=== PATIENT | male | born 1965 | race Caucasian/White ===

== ENCOUNTER 2016-03-07 11:13 | Emergency (ER) | payer OTHER ==
[~2016-03-07] VITALS: Ht 180.3 cm; Wt 95.3 kg
[~2016-03-07 11:13] MED LIST: AMOXICILLIN875 MG PO; MOTRIN800 MG PO; VICODIN5-300 PO
--- NOTE | 2016-03-07 12:02 | ED GENERAL ADULT ---
History of Present Illness General Chief Complaint: General Adult Stated Complaint: MULTIPLE COMPLAINTS Source: patient Exam Limitations: no limitations Vital Signs & Intake/Output Vital Signs & Intake/Output Vital Signs Date Time Temp Pulse Resp B/P Pulse O2 O2 Flow FiO2 Ox Delivery Rate 03/07 1419 97.8 88 22 140/84 96 Room Air 03/07 1128 98.3 95 20 136/92 97 Room Air Allergies Coded Allergies: No Known Allergies (05/06/15) Reconcile Medications Amoxicillin 875 MG TAB 1 TAB PO BID INFECTINO Gabapentin 300 MG CAPSULE 1 CAP PO QHS NEUROPATHIC PAIN TAKE 1 PILL AT NIGHT TIME X 1 WEEK, THEN GO UP TO TWICE A DAY. HYDROCODONE/ACETAMINOPHEN (Hydrocodon-Acetaminophen 5-325) 1 TAB TAB 1 TAB PO Q6 PRN PAIN Ibuprofen (Motrin) 800 MG TAB 1 TAB PO TID PRN PAIN Triage Note: PT C/O LEFT ARMPIT PAIN THAT GOES INTO LEFT CHEST AND LEFT SHOULDER. STATES LEFT ARM IS NUMB. 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 PT STATES IT'S BEEN LIKE THIS SINCE BEFORE [place]. Triage Nurses Notes Reviewed? yes Onset: Gradual Duration: 2 MONTHS Timing: no prior history Injury Environment: home Severity: moderate Severity Numbers: 6 HPI: Patient is a 50-year-old male with no known past medical history presenting to the emergency department with chief complaint left shoulder, left-sided neck, left arm pain has been going on intermittently for the past 2 months. Denies any specific injury but reports he does significant heavy lifting for his job. He works in construction. Denies any shortness of breath. Pain is achy, intermittently tingling that radiates from the left side of his neck down the left arm. Denies any weakness. Denies any other pain. Has been taking ibuprofen twice a day with little to no relief. Denies any palpitations or chest pain. Denies any nausea vomiting or jaw pain. No back pain. He reports the pain is worse with movement and breathing. Symptoms currently moderate. (VIK HERNANDEZ) Past History Travel History Traveled to [place] past 21 day No Medical History Any Pertinent Medical History? see below for history Neurological: NONE EENT: NONE Cardiovascular: NONE Respiratory: NONE Gastrointestinal: NONE Hepatic: NONE Renal: NONE Musculoskeletal: NONE Psychiatric: NONE Endocrine: NONE Blood Disorders: NONE Cancer(s): NONE Tetanus Vaccine: 11/09/12 Surgical History Surgical History: non-contributory Psychosocial History What is your primary language Slovenian Tobacco Use: Current Daily Use Daily Tobacco Use Amount/Type: => 5 Cigarettes daily ETOH Use: occasional use Illicit Drug Use: denies illicit drug use Family History Hx Contributory? No (VIK HERNANDEZ) Review of Systems Review of Systems Constitutional: Reports: no symptoms. Comments Review of systems: See HPI, All other systems negative. Constitutional, no chills fever or weight loss HEENT: No visual changes no sore throat no congestion Cardiovascular: No palpitation , orthopnea or ankle swelling Skin, no jaundice no rashes Respiratory: No dyspnea cough sputum or hemoptysis GI: No nausea no vomiting : No dysuria No hematuria Muscle skeletal: no back pain Neurologic: No numbness no confusion Psych: No stress anxiety or depression,. Heme/endocrine: No bruising no bleeding no polyuria or polydipsia Immunology: No splenectomy or history of AIDS (VIK HRENANDEZ) Physical Exam Physical Exam General Appearance: well developed/nourished, no apparent distress, alert, awake , comfortable Comments: Well-developed well-nourished person in no acute distress HEENT: Normal EENT exam, extraocular motion intact, no nystagmus. Pupils equally round and reactive to light and accommodation. Nose is atraumatic. External auditory canal and Tympanic membranes clear. Pharynx normal. No swelling or edema. Neck: Supple, no lymphadenopathy, normal range of motion, FULL ROM. Back: TENDER TO PALPATION ALONG PARASPINAL MUSCLES ALONG CERVICAL SPINE. no CVA tenderness. Full range of motion Cardiovascular: Regular rate and rhythms no murmurs rubs or gallops, normal JVP Respiratory: Chest nontender. No respiratory distress.breath sounds clear to auscultation bilaterally Abdomen: Soft, nontender nondistended, no appreciable organomegaly. Normal bowel sounds. No ascites Extremity: No edema, no calf tenderness to palpation, normal and equal pulses. 5 /5 STRENGTH IN UPPER EXT BILATERALLY. PLANT ETIOLOGIST STRENGTH IS EQUAL AND SYMMETRIC BILATERALLY. Neuro: Alert oriented x3, motor sensory normal, Skin: No appreciable rash on exposed skin, skin is warm and dry. Psych: Mood and affect is normal, memory and judgment is normal. Core Measures ACS in differential dx? Yes CVA/TIA Diagnosis: No Severe Sepsis Present: No Septic Shock Present: No (MAYA BUNCH,VIK) Progress Differential Diagnoses I considered the following diagnoses in my evaluation of the patient: Cervical radiculopathy, acute coronary syndrome, pulmonary embolus, muscle strain, DVT Plan of Care: Orders Procedure Date/time Status Durable Medical Equipment 03/07 1349 Active TROPONIN LEVEL 03/07 1223 Complete PARTIAL THROMBOPLASTIN TIME 03/07 1223 Complete PROTHROMBIN TIME 03/07 1223 Complete D-DIMER 03/07 1223 Complete COMPREHENSIVE METABOLIC PANEL 03/07 1223 Complete CHOLESTEROL 03/07 1223 Complete CBC WITHOUT DIFFERENTIAL 03/07 1223 Complete EKG 03/07 1114 Active Current Medications Sig/Jesu Start time Last Medication Dose Stop Time Status Admin Ketorolac 30 MG ONE ONE 03/07 1315 CAN Tromethamine 03/07 1316 (Toradol) Laboratory Tests 03/07/16 1240: Anion Gap 9, Estimated GFR > 60, BUN/Creatinine Ratio 11.1, Glucose 93, Calcium 9.6, Total Bilirubin 1.0, AST 20, ALT 29, Alkaline Phosphatase 80, Troponin I < 0.01, Total Protein 7.0, Albumin 4.3, Globulin 2.7, Albumin/Globulin Ratio 1.6, Cholesterol 227 H, PT 10.0, INR 0.95, APTT 31, D-Dimer < 200, CBC w Diff NO MAN DIFF REQ, RBC 4.59 L, MCV 97.9 H, MCH 33.4 H, RDW 13.8, MPV 8.9, Gran % 67.2, Lymphocytes % 23.2, Monocytes % 6.0, Eosinophils % 3.5, Basophils % 0.1, Absolute Granulocytes 8.0 H, Absolute Lymphocytes 2.8, Absolute Monocytes 0.7 H, Absolute Eosinophils 0.4, Absolute Basophils 0, PUBS MCHC 34.1 Diagnostic Imaging: Viewed by Me: Radiology Read, CT Scan. Discussed w/RAD: Radiology Read, CT Scan. Radiology Impression: PATIENT: PERLA REBOLLAR PRESENT AGE: 50 PATIENT ACCOUNT NO: [id number] : 64 LOCATION: [facility] ORDERING PHYSICIAN: VIK BUNCH SERVICE DATE: 03/07/16-1223 EXAM TYPE: CAT - CT CERV SPINE WO IV CONTRAST EXAMINATION: CT CERVICAL SPINE WITHOUT CONTRAST CLINICAL INFORMATION: Left arm pain. Assess for stenosis. COMPARISON: None. TECHNIQUE: A noncontrast axial CT scan of the cervical spine was obtained. Coronal and sagittal reformatted images were generated at the acquisition workstation. DLP: 356.11 mGy-cm. FINDINGS: There is reversal of the normal cervical lordosis at C5-C6. There is narrowing of intervertebral disc height at C5-C6 and C6-C7. Vertebral body heights are maintained and there are no compression fractures. There are prominent marginal osteophytes at C5-C6. Bone mineralization appears normal. The paravertebral structures are unremarkable. There is irregularity of the posterior aspect of the spinous processes of C7, consistent with sequelae of prior trauma. The lateral masses of C1 and C2 are normally aligned and the dens is intact. There is atheromatous calcification of the carotid bifurcations bilaterally. SPINAL LEVELS: C2-C3: There is a small posterior disc protrusion. There are left greater than right uncovertebral osteophytes. There is no central stenosis or foraminal narrowing. C3-C4: There is a small posterior disc protrusion which is most prominent to the left of midline. There is no definite spinal cord compression or central stenosis. The neural foramina are patent. C4-C5: There is a small posterior disc protrusion. There is bilateral facet arthropathy and there are small uncovertebral osteophytes. There is no central stenosis, and the neural foramina are patent. C5-C6: There are prominent osteophytic spurs centrally and to the left of midline along the endplates of C5 and C6, and there is likely compression of the spinal cord on the left. There are uncovertebral osteophytes bilaterally. There is mild bilateral foraminal narrowing. C6-C7: There is a posterior disc osteophyte complex and there are bilateral uncovertebral osteophytes. There is no central stenosis or foraminal narrowing. C7-T1: Disc contour is normal. There is no central stenosis or foraminal narrowing. IMPRESSION: 1. There are prominent osteophytic spurs centrally and to the left of midline at C5-C6 with likely compression of the spinal cord on the left. There is mild bilateral foraminal narrowing at this level. 2. Milder degenerative changes are demonstrated at other levels as described. 3. There are no acute fractures or subluxations. DICTATED BY: JESUS MCFARLAND MD , PATIENT: PERLA REBOLLAR PRESENT AGE: 50 PATIENT ACCOUNT NO: [id number] : 64 LOCATION: ER ORDERING PHYSICIAN: VIK BUNCH SERVICE DATE: 03/07/16 EXAM TYPE: RAD - XRY-SHOULDER COMPLETE-LEFT EXAMINATION: XR SHOULDER, LEFT CLINICAL INFORMATION: Pain COMPARISON: None. TECHNIQUE: 4 views of the left shoulder. FINDINGS: Glenohumeral alignment is anatomic. There is osteophyte formation along the inferior aspect of the glenoid. No acute fracture is seen. The acromioclavicular joint is intact with mild degenerative change. IMPRESSION: No acute findings. Degenerative changes along the inferior glenoid and acromioclavicular joint. CXR Impression: PATIENT: PERLA REBOLLAR PRESENT AGE: 50 PATIENT ACCOUNT NO: [id number] : 64 LOCATION: ER ORDERING PHYSICIAN: VIK BUNCH SERVICE DATE: 03/07/16 EXAM TYPE: RAD - XRY-CHEST XRAY, PA AND LATERAL EXAMINATION: XR CHEST CLINICAL INFORMATION: Left-sided chest pain. Evaluate for cardiomegaly. Patient states left shoulder pain. COMPARISON: None. TECHNIQUE: PA and lateral views of the chest were obtained. FINDINGS: The cardiomediastinal silhouette is within normal limits in size. Lungs bilaterally are symmetrically expanded and clear. No effusion or pneumothorax is seen. Bony structures are unremarkable. IMPRESSION: No acute cardiac pulmonary process seen. Cardiomediastinal silhouette is normal in size. DICTATED BY: MARCOS BROOKS MD DATE/TIME DICTATED:03/07/161313 STAND IN:TR DATE/TIME TRANSCRIBED:03/07/161313 CONFIDENTIAL, DO NOT COPY WITHOUT APPROPRIATE AUTHORIZATION. <Electronically signed in Other Vendor System> SIGNED BY: MARCOS BROOKS MD 03/07/16 1331 Initial ED EKG: NORMAL SINUS RHYTHM AT 78 BPM Prior EKG: unchanged (NO PRIOR) Comments: 03/07/2016 1:37:06 PM on arrival patient no acute distress, EKG is normal sinus vitals stable. Patient has no history of cardiac issues although he has not seen a primary care physician in several years. Pain is reproducible with palpation and range of motion. Likely cervical radiculopathy cannot exclude cardiac origin. Patient will go for CT of the neck, chest x-ray, shoulder x-ray , troponins ordered. 03/07/2016 2:37:38 PM patient reporting slight improvement with IV Toradol. He' ll be started on gabapentin as CT scan shows cervical spinal stenosis which could be pinching nerves on the left side of his neck. Troponin is negative. Vitals are stable. Patient will follow-up with orthopedics and PCP. Patient nontoxic. Discussed with . AND HE AGREES WITH PLAN. (MAYA BUNCH,VIK) Departure Departure Time of Disposition: 1426 Disposition: HOME OR SELF CARE Condition: Stable Clinical Impression Primary Impression: Cervical radicular pain Referrals: PATIENT HAS NO PRIMARY CARE DR (PCP/Family) ADIEL KIRK,FERNY Butler Additional Instructions: Follow-up with orthopedics call to make an appointment. Take gabapentin as prescribed. Wear sling for support. Return for worsening symptoms or concerns. PATIENT: PERLA REBOLLAR PRESENT AGE: 50 PATIENT ACCOUNT NO: [id number] : 64 LOCATION: [facility] ORDERING PHYSICIAN: VIK BUNCH SERVICE DATE: 03/07/16 EXAM TYPE: CAT - CT CERV SPINE WO IV CONTRAST EXAMINATION: CT CERVICAL SPINE WITHOUT CONTRAST CLINICAL INFORMATION: Left arm pain. Assess for stenosis. COMPARISON: None. TECHNIQUE: A noncontrast axial CT scan of the cervical spine was obtained. Coronal and sagittal reformatted images were generated at the acquisition workstation. DLP: 356.11 mGy-cm. FINDINGS: There is reversal of the normal cervical lordosis at C5-C6. There is narrowing of intervertebral disc height at C5-C6 and C6-C7. Vertebral body heights are maintained and there are no compression fractures. There are prominent marginal osteophytes at C5-C6. Bone mineralization appears normal. The paravertebral structures are unremarkable. There is irregularity of the posterior aspect of the spinous processes of C7, consistent with sequelae of prior trauma. The lateral masses of C1 and C2 are normally aligned and the dens is intact. There is atheromatous calcification of the carotid bifurcations bilaterally. SPINAL LEVELS: C2-C3: There is a small posterior disc protrusion. There are left greater than right uncovertebral osteophytes. There is no central stenosis or foraminal narrowing. C3-C4: There is a small posterior disc protrusion which is most prominent to the left of midline. There is no definite spinal cord compression or central stenosis. The neural foramina are patent. C4-C5: There is a small posterior disc protrusion. There is bilateral facet arthropathy and there are small uncovertebral osteophytes. There is no central stenosis, and the neural foramina are patent. C5-C6: There are prominent osteophytic spurs centrally and to the left of midline along the endplates of C5 and C6, and there is likely compression of the spinal cord on the left. There are uncovertebral osteophytes bilaterally. There is mild bilateral foraminal narrowing. C6-C7: There is a posterior disc osteophyte complex and there are bilateral uncovertebral osteophytes. There is no central stenosis or foraminal narrowing. C7-T1: Disc contour is normal. There is no central stenosis or foraminal narrowing. IMPRESSION: 1. There are prominent osteophytic spurs centrally and to the left of midline at C5-C6 with likely compression of the spinal cord on the left. There is mild bilateral foraminal narrowing at this level. 2. Milder degenerative changes are demonstrated at other levels as described. 3. There are no acute fractures or subluxations. DICTATED BY: JESUS MCFARLAND MD DATE/TIME DICTATED:03/07/161256 STAND IN:TR DATE/TIME TRANSCRIBED:03/07/161256 CONFIDENTIAL, DO NOT COPY WITHOUT APPROPRIATE AUTHORIZATION. <Electronically signed in Other Vendor System> SIGNED BY: JESUS MCFARLAND MD 03/07/16 1314 Departure Forms: Customer Survey General Discharge Information Prescriptions: Current Visit Scripts Gabapentin 1 CAP PO QHS #90 CAP TAKE 1 PILL AT NIGHT TIME X 1 WEEK, THEN GO UP TO TWICE A DAY. (VIK HERNANDEZ) PA/CLINICAL NURSE REVIEWER Co-Sign Statement Statement: ED Attending supervision documentation- [] I saw and evaluated the patient. I have also reviewed all the pertinent lab results and diagnostic results. I agree with the findings and the plan of care as documented in the PA's/CLINICAL NURSE REVIEWER's documentation. x I have reviewed the ED Record and agree with the PA's/CLINICAL NURSE REVIEWER's documentation. [] Additions or exceptions (if any) to the PAs/CLINICAL NURSE REVIEWER's note and plan are summarized below: [] (TYLER KIRK,SHAJI) Procedures Splinting Location: LEFT SHOULDER Manual Alignment Performed: No (MAYA BUNCH,VIK) Critical Care Note Critical Care Note Critical Care Time: non-applicable (MAYA BUNCH,VIK)
[2016-03-07 12:54] LABS: ABSOLUTE BASOPHIL COUNT 0 /CUMM (0.0-0.2); ABSOLUTE EOSINOPHIL COUNT 0.4 /CUMM (0.0-0.7); ABSOLUTE LYMPH COUNT 2.8 /CUMM (1.2-3.4); ABSOLUTE MONOCYTE COUNT 0.7 /CUMM (0.10-0.60); BASOPHIL % 0.1 % (0.0-2.0); EOSINOPHIL % 3.5 % (0-5); GRANULOCYTE % 67.2 % (42.2-75.2); HEMATOCRIT 44.9 % (42-52); MEAN CORPUSCULAR HGB 33.4 PG (27.0-31.0); MEAN CORPUSCULAR HGB CONC 34.1 G/DL (33.0-37.0); MEAN CORPUSCULAR VOLUME 97.9 FL (80.0-94.0); MEAN PLATELET VOLUME 8.9 FL (7.4-10.4); PLATELET COUNT 261 /CUMM (130-400); RBC DISTRIBUTION WIDTH 13.8 % (11.5-14.5); RED BLOOD CELL CT 4.59 /CUMM (4.70-6.10); WHITE BLOOD CELL COUNT 11.9 /CUMM (4.8-10.8)
--- NOTE | 2016-03-07 13:14 | CT SCAN REPORT ---
EXAMINATION: CT CERVICAL SPINE WITHOUT CONTRAST CLINICAL INFORMATION: Left arm pain. Assess for stenosis. COMPARISON: None. TECHNIQUE: A noncontrast axial CT scan of the cervical spine was obtained. Coronal and sagittal reformatted images were generated at the acquisition workstation. DLP: 356.11 mGy-cm. FINDINGS: There is reversal of the normal cervical lordosis at C5-C6. There is narrowing of intervertebral disc height at C5-C6 and C6-C7. Vertebral body heights are maintained and there are no compression fractures. There are prominent marginal osteophytes at C5-C6. Bone mineralization appears normal. The paravertebral structures are unremarkable. There is irregularity of the posterior aspect of the spinous processes of C7, consistent with sequelae of prior trauma. The lateral masses of C1 and C2 are normally aligned and the dens is intact. There is atheromatous calcification of the carotid bifurcations bilaterally. SPINAL LEVELS: C2-C3: There is a small posterior disc protrusion. There are left greater than right uncovertebral osteophytes. There is no central stenosis or foraminal narrowing. C3-C4: There is a small posterior disc protrusion which is most prominent to the left of midline. There is no definite spinal cord compression or central stenosis. The neural foramina are patent. C4-C5: There is a small posterior disc protrusion. There is bilateral facet arthropathy and there are small uncovertebral osteophytes. There is no central stenosis, and the neural foramina are patent. C5-C6: There are prominent osteophytic spurs centrally and to the left of midline along the endplates of C5 and C6, and there is likely compression of the spinal cord on the left. There are uncovertebral osteophytes bilaterally. There is mild bilateral foraminal narrowing. C6-C7: There is a posterior disc osteophyte complex and there are bilateral uncovertebral osteophytes. There is no central stenosis or foraminal narrowing. C7-T1: Disc contour is normal. There is no central stenosis or foraminal narrowing. IMPRESSION: 1. There are prominent osteophytic spurs centrally and to the left of midline at C5-C6 with likely compression of the spinal cord on the left. There is mild bilateral foraminal narrowing at this level. 2. Milder degenerative changes are demonstrated at other levels as described. 3. There are no acute fractures or subluxations.
[2016-03-07 13:16] LABS: PTT 31 SEC (25-37)
--- NOTE | 2016-03-07 13:31 | RADIOLOGY REPORT ---
EXAMINATION: XR CHEST CLINICAL INFORMATION: Left-sided chest pain. Evaluate for cardiomegaly. Patient states left shoulder pain. COMPARISON: None. TECHNIQUE: PA and lateral views of the chest were obtained. FINDINGS: The cardiomediastinal silhouette is within normal limits in size. Lungs bilaterally are symmetrically expanded and clear. No effusion or pneumothorax is seen. Bony structures are unremarkable. IMPRESSION: No acute cardiac pulmonary process seen. Cardiomediastinal silhouette is normal in size.
[2016-03-07 14:19] VITALS: BP 140/84
--- NOTE | 2016-03-07 14:25 | RADIOLOGY REPORT ---
EXAMINATION: XR SHOULDER, LEFT CLINICAL INFORMATION: Pain COMPARISON: None. TECHNIQUE: 4 views of the left shoulder. FINDINGS: Glenohumeral alignment is anatomic. There is osteophyte formation along the inferior aspect of the glenoid. No acute fracture is seen. The acromioclavicular joint is intact with mild degenerative change. IMPRESSION: No acute findings. Degenerative changes along the inferior glenoid and acromioclavicular joint.
[2016-03-07] MEDS ORDERED: GABAPENTIN300 M2 PO (14:32)
== END 2016-03-07 14:44 ==
LOC: ERH 11:13
PROVIDERS: Physician Assistant
DX: M54.12 Radiculopathy, cervical region (principal); M79.602 Pain in left arm
CPT/HCPCS: 73030-LT; 93005; 93010; 96374; J1885